=== PATIENT | female | born 2000 | race Caucasian/White ===

== ENCOUNTER 2021-06-24 00:58 | Emergency (ER) | payer OTHER, SELFPAY ==
[2021-06-24 01:03] VITALS: BP 116/67; PULSE 128; RESP 16; TEMP 38.1; O2SAT 96; BMI 29.2
[2021-06-24 01:32] LABS: COVID-19 Test Negative (Negative)
--- NOTE | 2021-06-24 02:04 | ED.GENADULT ---
HPI - General Adult General Chief complaint: General Medical Stated complaint: hives on stomach & arms, cold sweats, sob, 101temp Time Seen by Provider: 06/24/21 02:04 Source: patient Mode of arrival: ambulatory Limitations: no limitations History of Present Illness HPI narrative: Patient already been vaccinated against COVID bleeding the booster dose woke up at 23:00 noticed some hives which gone by now after taking Benadryl at body aches weakness worried about the COVID hence came to the ER to be checked for the COVID no cough or shortness of breath Review of Systems Review of Systems: Yes all other systems are reviewed and are negative PMFSH Past Medical History Medical History No known health problems Social History Social History Advance Directives: No Patient : No Physical Exam ED Vital Signs: Vital Signs - 24 hr 06/24/21 01:03 Temperature 100.5 F H Pulse Rate 128 H Respiratory Rate 16 Blood Pressure 116/67 Pulse Oximetry 96 BMI result Body Mass Index 29.2 Appearance: Alert. Oriented X3. No acute distress. ENT: Pharynx normal. Oral Mucosa moist Neck: Normal inspection. Neck supple. CVS: Normal heart rate and rhythm. Pulses normal. Respiratory: No respiratory distress. Equal air entry bilateral, no wheezing/rales/rhonchi Abdomen: Soft and nontender. Bowel sounds are present, no mass palpable, Neuro: Oriented X 3. Medical Decision Making MDM Narrative Medical decision making narrative: No rash noted at this time COVID-19 is negative patient advised to take Benadryl and follow with PCP as needed Lab Data Lab results reviewed: Yes I reviewed the patient's lab results. Labs: Lab Results 06/24/21 Range/Units 01:13 COVID-19 (KATHRYN) Negative (Negative) COVID-19 Clin Com See Note Discharge Plan Discharge Clinical Impression: Hives Patient Disposition: Home, Self-Care Instructions: Urticaria (ED) Additional Instructions: Etiology of hives not clear you may be allergic to something Take Benadryl 25-50 mg every 6 hours as needed Report to the ER if gets worse
== END 2021-06-24 03:06 | disposition home or self-care (01) ==
PROVIDERS: Emergency Provider Internal Medicine
DX: L50.9 Urticaria, unspecified (principal); Z20.822 Contact with and (suspected) exposure to COVID-19; M79.10 Myalgia, unspecified site
CPT/HCPCS: 87635; 99283